=== PATIENT | female | born 1980 | race Caucasian/White ===

== ENCOUNTER → 2016-07-25 | Outpatient (REF) | LOC: WSOH 09:06 | DX: Z02.89 Encounter for other administrative examinations (principal) ==

== ENCOUNTER → 2017-01-30 | Outpatient (REF) | LOC: WSOH 13:09 | DX: Z02.89 Encounter for other administrative examinations (principal) ==

== ENCOUNTER 2017-09-24 19:55 | Emergency (ER) | payer BC ==
[~2017-09-24] VITALS: Ht 167.6 cm; Wt 72.7 kg
[2017-09-24 20:01] VITALS: BP 144/72; PULSE 52; TEMP 97
== END 2017-09-24 21:31 | disposition home or self-care (01) ==
LOC: COL.ER 19:55
DX: S09.90XA Unspecified injury of head, initial encounter (principal); S51.012A Laceration without foreign body of left elbow, initial encounter; S80.812A Abrasion, left lower leg, initial encounter; V18.4XXA Pedal cycle driver injured in noncollision transport accident in traffic accident, initial encounter